=== PATIENT | male | born 1945 | race Hispanic/Latino ===

== ENCOUNTER → 2024-02-25 | Outpatient (CLI) | payer OTHER ==
[~2024-02-25] MED LIST: AEC81 PO; ALBU8.5H8 IH; AMOX-426 PO; ATOR40TA69 PO; BUDE10.7 IH; ERGO500093 PO; FAMO-136 PO; HYDR-3420 PO; HYDR25TA PO; LEVO75CA5 PO; LISI40TA9 PO; LORA10TA7 PO; METO25TA3 PO; MONT-39 PO; PRED20TA3 PO
[2024-02-25] MEDS: REGADENOSON 0.4 MG/5 ML PF SYG IVP ONE (11:59)
== END | disposition home or self-care (01) ==
LOC: SHCH 07:32
PROVIDERS: ATTEND Internal Medicine Cardiovascular Disease
DX: R07.9 Chest pain, unspecified (principal)
CPT/HCPCS: 78452; 93017; J2785; A9500 ×2

== ENCOUNTER → 2024-02-29 | Outpatient (CLI) | payer OTHER ==
[2024-02-29 13:04] LABS: CREATININE 1.1 mg/dL (0.5-1.3); MAGNESIUM 2.1 mg/dL (1.80-2.40); PHOSPHORUS 3.5 mg/dL (2.5-4.9); POTASSIUM 4.8 mmol/L (3.5-5.1)
== END | disposition home or self-care (01) ==
LOC: LAB 08:44
PROVIDERS: ATTEND Internal Medicine Cardiovascular Disease
DX: I49.3 Ventricular premature depolarization (principal)
CPT/HCPCS: 36415; 80048; 83735; 84100

== ENCOUNTER 2024-04-29 05:47 | Day surgery (SDC) | payer OTHER ==
[2024-04-25 09:16] VITALS: BP 154/66; PULSE 61; RESP 18; TEMP 98.1
[2024-04-25 09:31] LABS: BASOPHILS # (AUTO) 0.03 K/uL (0.00-0.20); BASOPHILS % (AUTO) 0.5 % (0.0-5.0); EOSINOPHILS # (AUTO) 0.43 K/uL (0.00-0.70); EOSINOPHILS % (AUTO) 6.6 % (0.0-8.0); HEMATOCRIT 33.6 % (42-54); IMMATURE GRANULOCYTE ABSOLUTE 0.06 K/uL (0-1); LYMPHOCYTES # (AUTO) 1.2 K/uL (1.0-4.8); LYMPHOCYTES % (AUTO) 18.9 % (21.0-51.0); MEAN CORPUSCULAR HEMOGLOBIN 30.7 pg (27.0-33.0); MEAN CORPUSCULAR HGB CONC 34.2 g/dL (32.0-36.0); MEAN CORPUSCULAR VOLUME 89.8 fL (79-99); MONOCYTES # (AUTO) 0.8 K/uL (0.1-1.0); MONOCYTES % (AUTO) 12.8 % (3.0-13.0); NEUTROPHILS # (AUTO) 3.9 K/uL (1.8-7.7); NEUTROPHILS % (AUTO) 60.3 % (40.0-77.0); PLATELET COUNT (AUTO) 132 K/uL (130-400); RED BLOOD CELL COUNT(AUTO) 3.74 MIL/uL (4.50-6.20); RED CELL DISTRIBUTION WIDTH 14.2 % (11.0-15.5); WHITE BLOOD COUNT (AUTO) 6.5 K/uL (4.8-10.8)
[2024-04-25 09:38] LABS: CREATININE 1.1 mg/dL (0.5-1.3); POTASSIUM 5.5 mmol/L (3.5-5.1)
[2024-04-25 09:44] LABS: INR 0.99 (0.85-1.15); PROTHROMBIN TIME 11.1 SEC (9.6-11.6)
[2024-04-25 09:45] LABS: PARTIAL THROMBOPLASTIN TIME 28.1 SEC (26.3-35.5)
--- NOTE | 2024-04-25 09:45 | EKG ---
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
[2024-04-25 09:47] LABS: B-TYPE NATRIURETIC PEPTIDE 42 pg/mL (0-100)
--- NOTE | 2024-04-25 10:32 | HMCIMG ---
Exam Type: CHEST 1VW Clinical Information: PREIOP Comparison: None Findings: The lungs are clear of infiltrates. The heart is normal in size. The bony and soft tissue structures of the chest are unremarkable. Impression: Clear lungs.
--- NOTE | 2024-04-28 10:21 | NUR ---
RE: LABS REPORTED BMP RESULTS TO FLAVIO CORDOBA NP. RECEIVED ORDERS TO RECHECK IN AM.
[2024-04-29] VITALS (9 sets, daily range): BP systolic 122–140; BP diastolic 53–69; PULSE 55–88; RESP 11–18; TEMP 97.5–98
[~2024-04-29] VITALS: Ht 180.3 cm; Wt 66.5 kg
[~2024-04-29 05:47] MED LIST changes: -AMOX-426 PO; +APIX5TAB PO; +DONE5TAB33 PO; -FAMO-136 PO; +IPRA3AMP24 IH; -LEVO75CA5 PO; +LEVO88CA4 PO; -LORA10TA7 PO; +METO-408 PO; -METO25TA3 PO; -PRED20TA3 PO; +RANO500T6 PO
[2024-04-29 06:38] LABS: CREATININE 1.2 mg/dL (0.5-1.3); POTASSIUM 4.8 mmol/L (3.5-5.1)
[2024-04-29] MEDS ORDERED: LIDOCAINE HCL 400MG/20ML VIAL ONE (07:10)
[2024-04-29] MEDS ORDERED: HEParin 10,000 UNIT/10ML (1,000 UNIT/ML) VIAL ONE (07:10)
[2024-04-29] MEDS ORDERED: IOHEXOL-350 75 ML VIAL IV ONE ×2 (07:10→08:36)
[2024-04-29] MEDS ORDERED: HEParin-NS 1,000 UNIT/500 ML 1,000 ML IV ONE (07:11)
[2024-04-29] MEDS ORDERED: NITROGLYCERIN 50MG VIAL ONE (07:11)
[2024-04-29] MEDS ORDERED: niCARDIpine 25MG INJ IV ONE (07:15)
[2024-04-29] MEDS ORDERED: FENTanyl CITRate PF 50 MCG/1 ML 2ML VIAL ONE (07:48)
[2024-04-29] MEDS ORDERED: MIDAZOLAM HCL 1 MG/ML 2ML VIAL ONE (07:49)
[2024-04-29] MEDS ORDERED: ATROPINE 1MG SYG IVP ONE (08:22)
[2024-04-29] MEDS ORDERED: ASPIRIN 325MG EC TAB PO ONE (08:37)
[2024-04-29] MEDS ORDERED: cloPIDOgrel 300MG TAB ONE (08:37)
[2024-04-29] MEDS: 0.9%NACL 1000ML 1,000 ML IV SCH (08:48)
--- NOTE | 2024-04-29 09:59 | PRN ---
PROCEDURE NOTE Indications: 1. Chest pain, CCS III symptoms 2. Abnormal Lexiscan stress test done on 02/25/2024 (moderate size, moderate intensity, fixed perfusion defect seen in the mid/apical inferior and inferior septal kohler) 3. Frequent PVCs 4. Nonsustained VT 5. Left ventricle systolic function is low normal, estimated LVEF 50-55% by echo cardiogram done on 02/01/2024 6. Moderate aortic regurgitation 7. Paroxysmal atrial fibrillation 8. COPD on home oxygen Procedures: Coronary angiogram, balloon angioplasty of the distal RCA, OCT assessment of the RCA, ELIANA placement in the distal RCA Introduction: After informed written consent was obtained, the patient was brought to the Catheterization Lab in the usual fasting state. Following sterile prep and drape, a time out was performed, then moderate sedation was administered, 1mg of Versed and 25mcg of Fentanyl, then 1% Lidocaine was infiltrated into the right femoral groin. Using a Modified Seldinger technique, a 6Fr Sheath was inserted into the right common femoral artery. While under fluoroscopic guidance, diagnostic coronary catheters were advanced over a wire into the central circulation where they were aspirated, flushed and placed to pressure monitoring, once the wire was removed. Coronary Angio: The left and right coronary arteries were engaged with appropriate catheters and angiography was performed under continuous pressure monitoring. Cardiac Findings: Right dominant system LM: Large caliber vessel with mild luminal irregularities. The vessel bifurcates into the LAD and LCX. LAD: Medium caliber vessel with 30% stenosis in the proximal LAD and diffuse 30- 40% stenosis in the mid LAD. The rest of the vessel has mild luminal irregularities Diagonal 1: Small caliber vessel with mild luminal irregularities Diagonal 2: Small caliber vessel with mild luminal irregularities. LCx: Large caliber vessel with 40% stenosis in the proximal and mid LCX. The rest of vessel has mild luminal irregularities Ramus: Medium caliber vessel mild luminal irregularities OM1: Medium caliber vessel mild luminal irregularities RCA: Large caliber vessel with diffuse 30% stenosis in the mid RCA and 80 and 80% stenosis in the distal RCA. RPDA: Medium caliber vessel mild luminal irregularities RPLV: Small caliber vessel mild luminal irregularities Medications given: Versed 2mg, Fentanyl 50mcg, clopidogrel 600 mg x 1 dose, aspirin 325 mg x 1 dose, heparin 75 units/kg x1 dose, nitroglycerin 200 mcg x 1 dose Coronary Intervention: Guide catheter: JR4 Guidewire: 0.014 runthrough After reviewing the above-mentioned findings the decision was made to intervene on the RCA. The JR4 guide catheter and 0.014 runthrough guidewire were advanced into the ostium of the RCA. We then advanced the 0.014 runthrough guidewire across the area stenosis and into the distal RPDA. We then performed balloon angioplasty (2.5 x 10 mm) in the distal RCA. We then performed OCT assessment of the distal RCA, to determine lumen size in the morphology of the stenosis. We then performed successful ELIANA placement (Xience skypoint 3.0 x 23mm) in the distal RCA. The stent was post dilated with a NC 3.25 x 15 mm balloon achieving optimal results. Repeat angiography then revealed a widely patent stent in the distal RCA and MARIBETH three blood flow distally. The 0.014 runthrough guidewire and JR4 guide catheter were then removed. The patient tolerated the procedure well and without issue. Complications: None Conscious Sedation Monitoring: Under my direct order and supervision, medication for moderate conscious sedation was administered by the nursing staff and the patients level of consciousness and physiological status was monitored by an independent trained nurse. Closure of Access Site: After the case completed the sheath was pulled and a 6Fr Angioseal was deployed in the right common femoral artery without complication. Conclusion: 1. CAD, 80-90% stenosis in the distal RCA status post successful treatment with balloon angioplasty and ELIANA placement (Xience skypoint 3.0 x 23mm). The stent was post dilated with a noncompliant balloon achieving optimal results 2. 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 Abnormal Lexiscan stress test done on 02/25/2024 (moderate size, moderate intensity, fixed perfusion defect seen in the mid/apical inferior and inferior septal kohler) 4. Frequent PVCs 5. Nonsustained VT 6. Left ventricle systolic function is low normal, estimated LVEF 50-55% by echo cardiogram done on 02/01/2024 7. Moderate aortic regurgitation 8. Paroxysmal atrial fibrillation 9. COPD on home oxygen Recommendation: 1. Continue goal-directed medical therapy. 2. Start clopidogrel 75 mg daily. The patient will be on triple therapy aspirin 81 mg daily, clopidogrel 75 mg daily and Eliquis 5 mg BID for one month. Then we will stop aspirin and the patient will continue only on clopidogrel and Eliquis. 3. Groin precautions 4. 4 hours of bed rest. 5. Start NS at 100 mL/hour x3 hours. 6. Okay to DC once the right groin is soft, and free of bruising, bleeding, and or hematoma formation. 7. No driving for the next 48 hours. 8. No heavy lifting or strenuous exercise for the next two weeks. 9. Please have the patient follow up with Dr. Perdue in 1-2 weeks. DASIA PERDUE MD Apr 29, 2024 09:59
[2024-04-29] MEDS ORDERED: 0.9%NACL 1000ML 1,000 ML IV SCH (10:00)
[2024-04-29] MEDS ORDERED: GLUCAGON 1MG KIT 1 MG ML IM PRN (10:00)
[2024-04-29] MEDS ORDERED: DEXTROSE 50%-WATER 50 ML DISP.SYRIN IV PRN (10:00)
[2024-04-29] MEDS ORDERED: CLOP75TA32 PO (10:18)
== END 2024-04-29 13:15 ==
LOC: DAH 05:47
PROVIDERS: ATTEND Internal Medicine Cardiovascular Disease
DX: R94.39 Abnormal result of other cardiovascular function study (principal); I47.20 Ventricular tachycardia, unspecified; I49.3 Ventricular premature depolarization; I48.0 Paroxysmal atrial fibrillation; I34.0 Nonrheumatic mitral (valve) insufficiency; I25.118 Atherosclerotic heart disease of native coronary artery with other forms of angina pectoris; E78.5 Hyperlipidemia, unspecified; I25.84 Coronary atherosclerosis due to calcified coronary lesion; I10 Essential (primary) hypertension; R06.02 Shortness of breath; R94.31 Abnormal electrocardiogram [ECG] [EKG]; J44.9 Chronic obstructive pulmonary disease, unspecified; R07.9 Chest pain, unspecified; Z79.899 Other long term (current) drug therapy; Z79.82 Long term (current) use of aspirin
CPT/HCPCS: 80048 ×2; 83880; 85025; 85610; 85730; 36415 ×2; 71045; 93005; 92978; 93454; 85347; C9600; C1887; C1894 ×2; C1725 ×2; C1760; C1769; C1874; J3010; J3490 ×3; J1644 ×2; J2250; Q9967 ×2; A4215; A4222; A4221; A4663; A4216; A4606; A4223 ×3; 99156; 99157; J0461

== ENCOUNTER → 2025-01-21 | Outpatient (CLI) | payer OTHER ==
[~2025-01-21] MED LIST changes: +CLOP75TA32 PO; -LEVO88CA4 PO; +LEVO88CA5 PO; +LISI40TA15 PO; -LISI40TA9 PO
--- NOTE | 2025-01-21 23:57 | HMCIMG ---
EXAM: CT CHEST WITHOUT INTRAVENOUS CONTRAST Technique: Helical computed tomography of the chest with thin-section axial acquisition and multiplanar reformations; dose reduction per ALARA. CTDIvol 5.8 mGy; DLP 230.90 mGy???cm. Contrast: No intravenous contrast administered. Clinical Information: History of chronic obstructive pulmonary disease; evaluation of the chest. Findings: Soft tissues: No abnormality identified. Lungs and large airways: Diffuse emphysematous changes; scattered smooth interstitial thickening in both lungs; multiple tiny scattered nodular opacities in both lungs; central airways patent. Pleura: No pleural effusion or pneumothorax; no pleural mass. Heart and pericardium: No pericardial effusion; moderate coronary artery calcifications. Aorta: Mild to moderate aortic atherosclerotic calcifications; thoracic aorta normal in caliber. Lymph nodes: No enlarged mediastinal, hilar, or axillary lymph nodes. Mediastinum and noam: No mass. Chest wall and lower neck: No abnormality identified. Bones/joints: Degenerative changes of the thoracic spine; no acute osseous abnormality. Upper abdomen: Imaged upper abdominal structures grossly unremarkable.IMPRESSION: 1. Diffuse emphysema with superimposed smooth interstitial thickening, consistent with chronic obstructive pulmonary disease. Correlate clinically for chronic bronchitis or small airways disease. 2. Multiple tiny scattered bilateral pulmonary nodular opacities, indeterminate on this study. 3. Moderate coronary artery calcifications and mild to moderate aortic atherosclerotic calcifications. Recommend cardiovascular risk factor optimization per clinical guidelines. 4. Degenerative changes of the thoracic spine. 5. No pleural effusion, pneumothorax, or pleural mass. 6. No enlarged mediastinal, hilar, or axillary lymph nodes. 7. Central airways patent. /[place]
== END | disposition home or self-care (01) ==
LOC: RAH 09:45
PROVIDERS: ATTEND Internal Medicine
DX: J44.89 Other specified chronic obstructive pulmonary disease (principal); J43.9 Emphysema, unspecified; R91.8 Other nonspecific abnormal finding of lung field; M47.814 Spondylosis without myelopathy or radiculopathy, thoracic region; I25.10 Atherosclerotic heart disease of native coronary artery without angina pectoris; I70.0 Atherosclerosis of aorta
CPT/HCPCS: 71250

== ENCOUNTER 2025-01-31 20:34 | Emergency (ER) | payer OTHER ==
[~2025-01-31] VITALS: Ht 175.3 cm; Wt 60.3 kg
--- NOTE | 2025-01-31 20:36 | NUR ---
PT REPORTED TO HIS DOCTOR(S) AFTER FALL
--- NOTE | 2025-01-31 20:53 | NUR ---
TRAUMA LEVEL 2 ALERT; PATIENT REPORTS BEING ON ELIQUIS AND REPORTS HE IS UNAWARE IF HE HIT HIS HEAD WHEN HE FELL.
--- NOTE | 2025-01-31 21:00 | NUR ---
PATIENT TO CT WITH ED RN
[2025-01-31 21:01] VITALS: BP 132/76; PULSE 84; RESP 18; TEMP 98.4; O2SAT 98
[2025-01-31 21:10] LABS: IMMATURE GRANULOCYTE ABSOLUTE 0.03 K/uL (0-1); NUCLEATED RED BLOOD CELLS 0.0 % (0.0-0.19); PLATELET COUNT (AUTO) 141 K/uL (130-400); RED BLOOD CELL COUNT(AUTO) 3.13 MIL/uL (4.50-6.20); RED CELL DISTRIBUTION WIDTH 14.4 % (11.0-15.5); WHITE BLOOD COUNT (AUTO) 8.2 K/uL (4.8-10.8)
--- NOTE | 2025-01-31 21:10 | EKG ---
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
--- NOTE | 2025-01-31 21:21 | NUR ---
PATIENT BACK FROM CT AT THIS TIME WITH ED RN
[2025-01-31 21:26] LABS: INR 1.07 (0.85-1.15)
[2025-01-31 21:31] LABS: CREATININE 1.4 mg/dL (0.5-1.3); GLOMERULAR FILTR. RATE CALC 50.0 mL/min (>90); GLUCOSE,RANDOM 105.0 mg/dL (70-105); SODIUM SERUM 139.0 mmol/L (136-145); UREA NITROGEN, BLOOD 50.0 mg/dL (7-18)
[2025-01-31 21:36] LABS: CREATINE KINASE, TOTAL 104.0 U/L (21-232)
--- NOTE | 2025-01-31 22:01 | HMCIMG ---
EXAM: Ultrasound for Deep Venous Thrombosis, Right Lower Extremity. CLINICAL HISTORY: Leg Pain and Swelling. TECHNIQUE: Real-time grayscale and compression ultrasound of the deep venous system of the right lower extremity with color Doppler and spectral waveform analysis. COMPARISON: None provided. FINDINGS: DEEP VEINS: The right common femoral, superficial femoral (proximal, mid, distal), and popliteal veins are anechoic, fully compressible, and demonstrate normal color Doppler flow with appropriate spectral augmentation. Visualized calf veins, including the posterior tibial veins, appear patent. No intraluminal echogenic thrombus is identified. SUPERFICIAL VENOUS SYSTEM: The right great saphenous vein is compressible with normal flow. SOFT TISSUES: Anechoic fluid-filled structure measuring 2.1 ??? 0.5 ??? 2.3 cm in the posterior patellar region, likely post-traumatic fluid or focal bursitis. Complex soft-tissue structure measuring 3.5 ??? 1.1 ??? 3.4 cm in the lateral patellar region, concerning a possible old hematoma or evolving post-traumatic collection. No popliteal fossa cyst or other abnormalities. IMPRESSION: No deep venous thrombosis is evident on right lower extremity examination. A small anechoic collection posterior to the patella is likely post-traumatic. Complex lateral patellar collection suspicious for an old hematoma or evolving post-traumatic change. Consider follow-up ultrasound or MRI of the right knee to evaluate interval change or characterize the collections. /[place]
--- NOTE | 2025-01-31 22:13 | HMCIMG ---
EXAM: CT Head Without IV contrast. CLINICAL HISTORY: Fall. TECHNIQUE: Axial computed tomography images of the head/brain without intravenous contrast. COMPARISON: None provided. FINDINGS: BRAIN: There is diffuse cerebral atrophy, evidenced by prominence of the cortical sulci and ventricular system, compatible with age-related changes. There is evidence of chronic small vessel ischemic change characterized by bilateral periventricular and deep white matter hypodensities. No evidence of acute hemorrhage. No mass lesion. No CT evidence for acute territorial infarct. No midline shift or extra-axial collections. VENTRICLES: No hydrocephalus. ORBITS: The orbits are unremarkable. SINUSES AND MASTOIDS: Polypoidal mucosal thickening in the left maxillary sinus in the limited sections. The remaining bilateral paranasal sinuses and mastoid air cells are clear. BONES: No fracture. SOFT TISSUES: Unremarkable. IMPRESSION: 1. No acute intracranial findings. 2. Mild age-appropriate generalized brain atrophy. Mild chronic small vessel ischemic disease. /[place]
--- NOTE | 2025-01-31 22:42 | HMCIMG ---
EXAM: X-ray Right Knee, 3 views. CLINICAL HISTORY: Fall. COMPARISON: None. FINDINGS: No acute fracture or aggressive appearing osseous lesion. Joint spaces are within normal limits. There is no joint effusion appreciated. The soft tissues are unremarkable. IMPRESSION: No acute osseous abnormality. /[place]
--- NOTE | 2025-01-31 22:43 | HMCIMG ---
EXAM: X-Ray Pelvis, 1 view. CLINICAL HISTORY: Fall. COMPARISON: None provided. FINDINGS: No acute fracture or aggressive appearing osseous lesion. Joint spaces are within normal limits. The soft tissues are unremarkable. IMPRESSION: No acute osseous abnormality. /[place]
--- NOTE | 2025-01-31 23:08 | ERN ---
General Chief Complaint: Mechanical Fall Stated Complaint: FALL 01/25/25, LEFT LEG PAIN, SWELLING, BRUISING Time Seen by MD: 20:42 Time Seen by Midlevel: 20:42 Source: patient History of Present Illness Initial Comments Patient is a 79-year-old male presenting to the emergency department following a fall. According to who is at bedside the patient walked into the same room as her and admitted he had fallen several days ago. They noticed bruising and swelling to the right lower extremity. The fall was unwitnessed and given that the patient has a history of dementia he is a poor historian. Patient is unsure if he hit his head. The only thing he remembers is falling onto his right knee. Patient is currently on Eliquis. Denies any other symptoms. Allergies: Coded Allergies: No Known Drug Allergies (Unverified Allergy, Unknown, 01/01/22) Home Meds Reported Medications Clopidogrel Bisulfate (Clopidogrel) 75 Mg Tablet, 1 TAB PO DAILY for 90 Days, #30 TAB 0 Refills 04/29/24 Ipratropium/Albuterol Sulfate (Iprat-Albut 0.5-3(2.5) mg/3 ml) 0.5 Mg-3 Mg (2.5 Mg Base)/3 Ml Ampul.neb, 3 ML IH Q4HPRN PRN for SHORTNESS OF BREATH 04/25/24 Donepezil HCl (Donepezil HCl) 5 Mg Tablet, 5 MG PO HS, TAB 04/25/24 Metoprolol Succinate (Metoprolol Succinate) 25 Mg Tab.er.24h, 12.5 MG PO DAILY, TAB 04/25/24 Levothyroxine Sodium (Levothyroxine) 88 Mcg Capsule, 88 MCG PO ACBKFST, CAP 04/25/24 Ranolazine (Ranolazine ER) 500 Mg Tab.er.12h, 500 MG PO BID, TAB 04/25/24 Apixaban (Eliquis) 5 Mg Tablet, 5 MG PO BID, TAB 04/25/24 Budesonide/Glycopyr/Formoterol (Breztri Aerosphere Inhaler) 160 Mcg-9 Mcg-4.8 Mcg/Actuation Hfa.aer.ad, 2 PUFF IH BID 04/25/24 Ergocalciferol (Vitamin D2) (Vitamin D2) 1,250 Mcg Capsule, 1250 MCG PO QWEEK, CAP 01/01/22 Montelukast Sodium (Montelukast Sodium) 10 Mg Tablet, 10 MG PO HS, TAB 01/01/22 Hydrochlorothiazide (Hydrochlorothiazide) 25 Mg Tablet, 25 MG PO DAILY, TAB 01/01/22 Atorvastatin Calcium (LIPITOR) 40 Mg Tablet, 40 MG PO HS, TAB 01/01/22 Hydralazine Hcl (APRESOLINE) 10 Mg Tablet, 50 MG PO BID, TAB 01/01/22 Lisinopril (Lisinopril) 40 Mg Tablet, 40 MG PO DAILY, TAB 01/01/22 Aspirin (ASPIRIN 81 MG ECTAB) 81 Mg Ectab, 81 MG PO DAILY, TAB.EC 01/01/22 Albuterol Sulfate (Proair Hfa) 8.5 Gm Hfa.aer.ad, 1-2 PUFF IH Q4HPRN PRN for SHORTNESS OF BREATH 01/01/22 Past Medical History Past Medical History: A-Fib, Asthma, COPD, Dementia, High Cholesterol, Hypertension, Hyperthyroid, Other Medical History Other: ALZHEIMERS Past Surgical History: Other Surgical History Other: CARDIAC STENTS Social History Social History: Negative, Lives with family ROS Dictation CONSTITUTIONAL: Negative except for HPI HEAD/FACE: Negative except for HPI EENT: Negative except for HPI RESPIRATORY: Negative except for HPI GASTROINTESTINAL/ABDOMINAL: Negative except for HPI GENITOURINARY: Negative except for HPI MUSCULOSKELETAL: Negative except for HPI INTEGUMENTARY: Negative except for HPI NEUROLOGICAL/PSYCH: Negative except for HPI HEMATOLOGIC/LYMPHATIC: Negative except for HPI All Systems Negative, Except as noted above. 13 point review of systems assessed and all negative except for above. Physical Exam Physical Exam Dictation Vital Signs reviewed General Appearance: Alert, oriented x 3, no acute distress, well developed, nourished. Head and Face: non-traumatic. Eyes: PERRL, pink conjunctivas, eyelid no trauma, anterior chamber with arcus senilis. Ears: Pinnas intact and no signs of trauma or erythema ear canals clear and no discharge TM no erythema Nose: No discharge, no bleeding. Oropharynx: Mouth normal, tongue pink, pharynx clear,no erythema, tonsils no exudates, no abscesses noted, mucous membrane moist Neck: Supple, non-tender, no thyromegaly, no masses, no JVD, no bruits Breast:Deferred Chest:No tenderness, no crepitus, no paradoxical movement, no retractions Lungs:Clear, well-ventilated, symmetric, no rales, no wheezing, no rhonchi, no stridor, good breath sounds bilaterally Heart: Regular rate, regular rhythm, no murmur, no gallops Vascular: no peripheral edema, Abdomen: Soft, positive bowel sounds, nondistended, no guarding, nontender, no rebound, no masses no hepatomegaly, no splenomegaly, no Head's sign, no hernias. Rectal: Deferred Genital: Deferred Neurological: Normal speech, motor function intact, sensory function intact Musculoskeletal: Neck nontender, full range of motion, back nontender, full range of motion, Extremities: There is swelling from the right knee extending all the way down to the right ankle, there is full range motion of bilateral upper and lower extremities Skin: Color pink, dry, no turgor, no rash, no lacerations, no abrasions, no contusions. Lymphatic: Deferred Results Laboratory and Microbiology Lab and Micro Result Laboratory Tests Test 01/31/25 21:02 White Blood Count 8.2 K/uL (4.8-10.8) Red Blood Count 3.13 MIL/uL (4.50-6.20) L Hemoglobin 9.8 g/dL (14.0-18.0) L Hematocrit 29.2 % (42-54) L Mean Corpuscular Volume 93.3 fL (79-99) Mean Corpuscular Hemoglobin 31.3 pg (27.0-33.0) Mean Corpuscular Hemoglobin Concent 33.6 g/dL (32.0-36.0) Red Cell Distribution Width 14.4 % (11.0-15.5) Platelet Count 141 K/uL (130-400) Mean Platelet Volume 9.2 fL (7.5-10.5) Immature Granulocyte % (Auto) 0.4 % (0-1) Neutrophils (%) (Auto) 66.4 % (40.0-77.0) Lymphocytes (%) (Auto) 13.2 % (21.0-51.0) L Monocytes (%) (Auto) 11.1 % (3.0-13.0) Eosinophils (%) (Auto) 8.4 % (0.0-8.0) H Basophils (%) (Auto) 0.5 % (0.0-5.0) Neutrophils # (Auto) 5.5 K/uL (1.8-7.7) Lymphocytes # (Auto) 1.1 K/uL (1.0-4.8) Monocytes # (Auto) 0.9 K/uL (0.1-1.0) Eosinophils # (Auto) 0.69 K/uL (0.00-0.70) Basophils # (Auto) 0.04 K/uL (0.00-0.20) Absolute Immature Granulocyte (auto 0.03 K/uL (0-1) Nucleated Red Blood Cells 0.0 % (0.0-0.19) Prothrombin Time 11.3 SEC (9.6-11.6) Prothromb Time International Ratio 1.07 (0.85-1.15) Activated Partial Thromboplast Time 24.2 SEC (26.3-35.5) L Sodium Level 139 mmol/L (136-145) Potassium Level 4.5 mmol/L (3.5-5.1) Chloride Level 105 mmol/L (101-111) Carbon Dioxide Level 28 mmol/L (21-32) Blood Urea Nitrogen 50 mg/dL (7-18) H Creatinine 1.4 mg/dL (0.5-1.3) H Glomerular Filtration Rate Calc 50 mL/min (>90) Random Glucose 105 mg/dL (70-105) Total Calcium 8.5 mg/dL (8.5-10.1) Magnesium Level 1.80 mg/dL (1.80-2.40) Total Creatine Kinase 104 U/L (21-232) # Troponin I High Sensitivity 6 ng/L (4-75) Labs Reviewed?: Yes MDM MDM: Patient is a 79-year-old male presenting to the emergency department following a fall. According to who is at bedside the patient walked into the same room as her and admitted he had fallen several days ago. They noticed bruising and swelling to the right lower extremity. The fall was unwitnessed and given that the patient has a history of dementia he is a poor historian. Patient is unsure if he hit his head. The only thing he remembers is falling onto his right knee. Patient is currently on Eliquis. Denies any other symptoms. On physical examination patient is in no acute distress. He has full range motion of bilateral upper and lower extremities. He is ambulatory without assistance. He has a GCS of 15. There is swelling and bruising from the right knee that extends down to the right ankle. Pulses and sensation are intact. Given the patient's age and unknown mechanism of injury regarding his fall a CT scan of the head was performed along with a chest x-ray, pelvic x-ray, right knee x-ray, and right ankle x-ray. Chest x-ray shows some pulmonary congestion versus pneumonia. This was discussed with both the patient and the and they are now reporting that the patient is currently under treatment for pneumonia. His pelvic x-ray does not show any acute fracture. His right knee and right ankle x-ray showed no fracture or dislocation. An ultrasound of the right lower extremity was obtained to rule out a DVT however no DVTs appreciated on ultrasound. There is an underlying superficial hematoma to the right knee which explains the bruising and swelling to the area. His CBC and chemistries are stable. His chemistries do reveal an elevated creatinine at 1.5 with a BUN of 50. I did offer the patient fluids but they are refusing stating that the patient would like to be discharged home and they can hydrate orally outpatient. Both patient Differential diagnosis: Fracture, contusion, intracranial bleed There are no social concerns with this patient. Prescription drug management Prescriptions will include: None Medical management and examination interpretation discussions were had by me with other qualified healthcare professionals as indicated for the patient's care. ED Course Orders Procedure Category Date Status Time 12 Lead Ekg Tracing- EKG 01/31/25 Complete Technical 21:03 Cbc With Differential LAB 01/31/25 Complete 21:03 Basic Metabolic Panel LAB 01/31/25 Complete 21:03 Creatine Kinase, Total LAB 01/31/25 Complete 21:03 Magnesium LAB 01/31/25 Complete 21:03 Troponin I High LAB 01/31/25 Complete Sensitivity 21:03 Pt And Ptt LAB 01/31/25 Complete 21: Urinalysis Profile LAB 01/31/25 Logged 21:03 Ct Head/Brain W/O CT 01/31/25 Resulted Contrast 21:03 Chest 1vw RAD 01/31/25 Taken 21:03 Pelvis 1-2vws RAD 01/31/25 Resulted 21:03 Knee 3vws Rt RAD 01/31/25 Resulted 21:03 Ankle Comp 3vws Rt RAD 01/31/25 Taken 21:03 Us Venous Doppler US 01/31/25 Resulted Unilateral 21:03 Vital Signs Date Time Temp Pulse Resp B/P (MAP) Pulse Ox O2 Delivery O2 Flow Rate FiO2 01/31/25 21:01 98.4 84 18 132/76 98 Room Air* 0 21 01/31/25 20:36 98.4 69 16 114/39 97 Room Air DX & DISP Disposition: Discharge Departure Impression: Primary Impression: Fall Additional Impressions: Contusion of right knee, Hematoma of right knee region Condition: Stable Referrals: TIO ADAMS MD (PCP) I have reviewed the case, and I agree with, Diagnosis and Plan I performed the substantive portion of the visit. I have reviewed and personally made and approve the management plan that is documented in the note by myself or the ROLA. I acknowledge for responsibility for the patient's management plan. SILVINA MINA PAC Jan 31, 2025 23:08
--- NOTE | 2025-01-31 23:10 | HMCIMG ---
EXAM: X-Ray Chest, 1 view. CLINICAL HISTORY: Fall. COMPARISON: None. FINDINGS: Hyperinflated lung becker with flattening of the domes of the diaphragm. The lungs show no infiltrate or other acute findings. No pleural effusion or pneumothorax. The cardiomediastinal silhouette is within normal limits. No acute osseous abnormality. Mild degenerative osseous changes and osteopenia. IMPRESSION: No acute cardiopulmonary pathology is evident. Moderate COPD. /[place]
--- NOTE | 2025-01-31 23:11 | HMCIMG ---
EXAM: CR Right Ankle, 3 views. CLINICAL HISTORY: Fall. COMPARISON: None provided. FINDINGS: No acute fracture or aggressive appearing osseous lesion. Joint spaces are within normal limits. No radiographic evidence of joint effusion. The soft tissues are unremarkable. Mild atheromatous vascular calcification. IMPRESSION: 1. No acute osseous abnormality. /[place]
== END 2025-01-31 23:15 | disposition home or self-care (01) ==
LOC: EDH 20:34
DX: S80.01XA Contusion of right knee, initial encounter (principal); I48.91 Unspecified atrial fibrillation; J44.89 Other specified chronic obstructive pulmonary disease; G30.9 Alzheimer's disease, unspecified; F02.80 Dementia in other diseases classified elsewhere, unspecified severity, without behavioral disturbance, psychotic disturbance, mood disturbance, and anxiety; E78.00 Pure hypercholesterolemia, unspecified; I10 Essential (primary) hypertension; Z79.899 Other long term (current) drug therapy; Z79.82 Long term (current) use of aspirin; Z79.02 Long term (current) use of antithrombotics/antiplatelets; Z79.01 Long term (current) use of anticoagulants; Z95.5 Presence of coronary angioplasty implant and graft; W18.39XA Other fall on same level, initial encounter; Y93.89 Activity, other specified; Y92.89 Other specified places as the place of occurrence of the external cause; Y99.8 Other external cause status
CPT/HCPCS: 36415; 70450; 71045; 72170; 73562; 73610; 80048; 82550; 83735; 84484; 85025; 85610; 85730; 93005; 93971; 99285